=== PATIENT | female | born 1955 | race Caucasian/White ===

== ENCOUNTER 2021-02-02 09:41 | Emergency (ER) | payer MEDICARE, SELFPAY ==
[2021-02-02 09:50] VITALS: BP 136/74; PULSE 71; RESP 20; TEMP 37.4; O2SAT 98
--- NOTE | 2021-02-02 10:24 | ED.URI ---
HPI - URI/Sore Throat General Chief Complaint: Upper Respiratory Infection Stated Complaint: sore throat Time Seen by Provider: 02/02/21 10:30 Source: patient, family and RN notes reviewed Mode of arrival: ambulatory Limitations: no limitations History of Present Illness HPI Narrative: 66-year-old female who presents to [facility] accompanied by daughter with complaints of sore throat pain to the right side which started yesterday morning. 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 Patient has had COVID immunizations. MD elicited complaint: sore throat Related Data Home Medications Medication Instructions Recorded Confirmed amitriptyline 25 mg PO DAILY 02/02/21 02/02/21 atorvastatin 20 mg PO DAILY 02/02/21 02/02/21 buspirone 30 mg PO BID 02/02/21 02/02/21 carvedilol 25 mg PO BID 02/02/21 02/02/21 chlorthalidone 25 mg PO DAILY 02/02/21 02/02/21 citalopram 40 mg PO DAILY 02/02/21 02/02/21 esomeprazole magnesium 20 mg PO BID 02/02/21 02/02/21 famotidine 20 mg PO BID 02/02/21 02/02/21 letrozole 2.5 mg PO DAILY 02/02/21 02/02/21 levothyroxine 125 mcg PO DAILY 02/02/21 02/02/21 lisinopril 40 mg PO DAILY 02/02/21 02/02/21 metformin 1,000 mg PO BID 02/02/21 02/02/21 palbociclib [Ibrance] 125 mg PO DAILY 02/02/21 02/02/21 trazodone 150 mg PO HS PRN 02/02/21 02/02/21 Allergies Allergy/AdvReac Type Severity Reaction Status Date / Time codeine Allergy Nausea Verified 02/02/21 10:07 Review of Systems Review of Systems: CONSTITUTIONAL: Denies fever, chills, or sweats. EYES: Denies visual changes, redness, or discharge. ENT: Denies rhinorrhea, congestion, positive sore throat, or otalgia. CARDIOVASCULAR: Denies chest pain, palpitations, or edema. RESPIRATORY: Denies cough or dyspnea. GASTROINTESTINAL: Denies abdominal pain, nausea, vomiting, or diarrhea. GENITOURINARY: Denies dysuria or hematuria. SKIN: Denies rash or itching. MUSCULOSKELETAL: Denies back pain, joint pain, or myalgia. NEUROLOGIC: Denies headache, numbness, or weakness. PSYCHIATRIC: Positive history of anxiety or depression. All systems reviewed & are unremarkable except as noted in HPI and below PMFSH Past Medical History Medical History (Updated 02/05/21 @ 21:10 by Gwen Ozuna NP) Breast cancer, stage 4 Diabetes Hypertension Hypothyroidism Surgical History Surgical History (Updated 02/05/21 @ 21:04 by Gwen Ozuna NP) H/O tubal ligation Hx of cholecystectomy Family History Family History (Updated 02/05/21 @ 21:04 by Gwen Ozuna NP) Mother Diabetes mellitus Hypertension Father Acute myocardial infarction Social History Social History (Updated 02/05/21 @ 21:03 by Gwen Ozuna NP) Smoking status: Former smoker Additional smoking assessment comments: quit many years ago Alcohol intake: current Alcohol use details: rare social Substance use: never Living arrangements: with family Gender identity (if verbalized by the patient): Female Comments At time of signing agree with nursing documentation of past medical, surgical, social and family history. There is no relevant family history pertinent to presenting complaint Exam Narrative: GENERAL: Well-appearing, well-nourished, and in no acute distress. HEAD: Normocephalic, atraumatic. EYES: PERRLA and EOMI. ENT: Nares clear, no rhinorrhea or epistaxis. Mucous membranes moist.TM's normal with good light reflex. Throat with mild redness, no lesions or exudates, no tonsil enlargement NECK: Supple.no lymphadenopathy CHEST: Clear to auscultation. No respiratory distress.SAO2 98% on room air HEART: Regular rate and rhythm. No murmur heard. Normal peripheral pulses. ABDOMEN: Soft, nontender, nondistended, normal active bowel sounds. EX
== END 2021-02-02 10:53 | disposition home or self-care (01) ==
PROVIDERS: Emergency Provider Registered Nurse; PCP Nurse Practitioner Family
DX: J06.9 Acute upper respiratory infection, unspecified (principal)
CPT/HCPCS: 87081; 87880; 99213; G0463